=== PATIENT | male | born 1980 | race Caucasian/White ===

== ENCOUNTER 2017-09-11 06:03 | Day surgery (SDC) | payer OTHER ==
[~2017-09-11] VITALS: Ht 175.3 cm; Wt 86.2 kg
[2017-09-11] MEDS ORDERED: BUPIVACAINE-MPF 0.25% 30 ML VIAL INJ ONE (07:29)
[2017-09-11] MEDS ORDERED: ONDANSETRON 4 MG/2 ML VIAL IVP ONE (07:37)
[2017-09-11] MEDS ORDERED: KETOROLAC 30 MG/ML VIAL IVP ONE (07:37)
[2017-09-11] MEDS ORDERED: PROPOFOL 200 MG/20 ML VIAL IV ONE (07:37)
[2017-09-11] MEDS ORDERED: SEVOFLURANE 250 ML BTL INH ONE (07:37)
[2017-09-11] MEDS ORDERED: DEXAMETHASONE 4 MG/ML VIAL IVP ONE (07:37)
[2017-09-11] MEDS ORDERED: fentaNYL 0.05 MG/ML VIAL ONE (07:44)
[2017-09-11] MEDS ORDERED: HYDROmorphone 1 MG/ML AMP IVP PRN (08:00)
[2017-09-11] MEDS ORDERED: ONDANSETRON 4 MG/2 ML VIAL IVP PRN (08:00)
[2017-09-11] MEDS ORDERED: THROMBIN KIT 20 MU VIAL TP ONE (08:58)
[2017-09-11] MEDS ORDERED: NACL 0.9% 1,000 ML IV SCH (10:01)
[2017-09-11] MEDS ORDERED: MORPHINE SULFATE 4 MG/ML SYR IV PRN (10:05)
[2017-09-11] MEDS ORDERED: ONDANSETRON 4 MG/2 ML VIAL IV PRN (10:05)
[2017-09-11] MEDS ORDERED: MORPHINE SULFATE 2 MG/ML SYR IVP PRN (10:05)
[2017-09-11] MEDS ORDERED: HYDROcodone/APAP 5/325 MG 1 TAB TAB PO PRN (10:05)
[2017-09-11] MEDS ORDERED: ACETAMINOPHEN 325 MG TAB PO PRN (10:05)
[2017-09-11] MEDS ORDERED: HYDROmorphone PFS 2 MG/ML SYR IVP PRN (10:05)
[2017-09-11 14:50] VITALS: BP 112/63
--- NOTE | 2017-09-11 14:50 | NUR ---
REPORT RECEIVED FROM CHARGE NURSE MATT, PT SITTING UP IN BED IN NAD, RESP EVEN UNLABORED, AAOX4, SKIN WARM DRY COLOR WNL, LEFT UPPER ARM SURGICAL SITE COVERED WITH CECELIA WRAP, FABIO DRAIN IN PLACE, SMALL AMT OF DARK RED BLOOD NOTED IN DRAIN, GOOD CMS DISTALLY, PT STATES PAIN IS TOLERABLE, DENIES NEED FOR PAIN MED, DENIES N/V, VS STABLE, PLAN OF CARE REVIEWED, AT BEDSIDE, PT ORIENTED TO ROOM AND FLOOR, CALL BARROS WITHIN REACH, BED LOCKED IN LOW POSITION, WILL CONTINUE TO MONITOR.
[2017-09-11 16:00] VITALS: BP 128/64
--- NOTE | 2017-09-11 16:39 | NUR ---
PT SITTING UP VISITING WITH FAMILY, PT DENIES PAIN OR DISCOMFORT, TAKING ORAL LIQ WELL WITH OUT PROBLEM, FABIO DRAIN WITH SML AMT OF DRAIN, DRESSING CDI, WILL CONTINUE TO MONITOR.
--- NOTE | 2017-09-11 19:00 | NUR ---
DR TAMAYO PAGEFoster, CALLED BACK, PT CONDITION REPORTED, PT WITH MINIMAL DRAINAGE IN FABIO DRAIN, GOOD COLOR, MOVEMENT AND SENSATION IN LEFT HAND AND ARM DISTAL TO DRESSING, DRESSING INTACT, NO DRAINAGE NOTED, PT DENIES PAIN OR DISCOMFORT, PT OK TO GO HOME PER DR TAMAYO.
--- NOTE | 2017-09-11 19:35 | NUR ---
PT OK TO DC HOME PER DR TAMAYO, PT UP AMBULATING WELL, VOIDED WITHOUT PROBLEM, TOLERATED REGULAR DIET WELL WITHOUT PROBLEM, DENIES PAIN, DENIES N/V, LEFT UPPER ARM DRESSING CLEAN, DRY, INTACT, FABIO DRAIN INTACT, MINIMAL DRAINAGE 5ML DARK RED BLOOD, PATIENT INFORMED TO FOLLOW UP WITH DR TAMAYO ON 09/13, PATIENT INSTRUCTED TO FOLLOW UP SOONER IF REDNESS, SWELLING, UNCONTROLLED PAIN, NUMBNESS, TINGLING, FEVER, UNCONTROLLED NAUSEA OR VOMITING OR OTHER CONCERNS. PATIENT VERBALIZED FULL UNDERSTANDING. IV DC'D, CATH TIP INTACT, BLEEDING CONTROLLED, PT AMBULATED OUT WITH STEADY GAIT WITH TO GO HOME.
== END 2017-09-11 19:40 | disposition home or self-care (01) ==
LOC: MDS 06:03 → MMU 06:04 → MDS 19:40
PROVIDERS: ATTEND Surgery
DX: D17.22 Benign lipomatous neoplasm of skin and subcutaneous tissue of left arm (principal); Z98.890 Other specified postprocedural states
CPT/HCPCS: 24073; 71010; 87081; J0690; J1100; J1885; J2405; J2704; J3010; J3490; J7060; J7120